=== PATIENT | male | born 2005 | race African-American/Black ===

== ENCOUNTER 2024-02-08 00:42 | Emergency (ER) | payer OTHER ==
[~2024-02-08] VITALS: Ht 175.3 cm; Wt 85.0 kg
[2024-02-08] MEDS ORDERED: PRAZOSIN HCL5 MG PO (01:02)
[2024-02-08] MEDS ORDERED: AMOX TR-K CLV1 EAC1 PO (01:12)
[2024-02-08] MEDS ORDERED: AMOXICILLIN/CLAVULANATE K 875 MG HOME.PACK PO ONE (01:15)
[2024-02-08 01:32] VITALS: BP 115/71
== END 2024-02-08 01:38 | disposition other institution, planned readmission (95) ==
LOC: ED 00:42
DX: T81.33XA Disruption of traumatic injury wound repair, initial encounter (principal); Y83.8 Other surgical procedures as the cause of abnormal reaction of the patient, or of later complication, without mention of misadventure at the time of the procedure
CPT/HCPCS: 99283